=== PATIENT | male | born 1995 | race Hispanic/Latino ===

== ENCOUNTER 2018-03-01 17:29 | Emergency (ER) | payer OTHER ==
[2018-03-01] MEDS ORDERED: ACETAMINOPHEN EXTRA STRENGTH 500 MG TABLET ONE (17:44)
[2018-03-01 18:20] LABS: RAPID GROUP A STREP NEGATIVE (NEGATIVE)
== END 2018-03-01 18:42 | disposition home or self-care (01) ==
LOC: EDH 17:29
DX: J06.9 Acute upper respiratory infection, unspecified (principal); Z72.0 Tobacco use
CPT/HCPCS: 87804; 87880